=== PATIENT | female | born 1995 ===

== ENCOUNTER 2017-02-15 10:00 | Emergency (ER) | payer MEDICAID ==
[2017-02-15 10:05] VITALS: BP 130/68; TEMP 98
[2017-02-15 10:06] VITALS: BMI 24.5
[2017-02-15 10:15] VITALS: PULSE 68; RESP 20; O2SAT 98
--- NOTE | 2017-02-15 10:45 | ED PDOC ---
HPI: General Adult Time Seen by Provider: 02/15/17 10:14 Chief Complaint (Nursing): Abnormal Skin Integrity Chief Complaint (Provider): Possible allergic reaction History Per: Patient History/Exam Limitations: no limitations Onset/Duration Of Symptoms: Days (3) Have you had recent travel within the past 21 days to any of the following countries: [place], [place], [place] or [place]?: No Current Symptoms Are (Timing): Still Present Severity: Moderate Additional History Per: Patient Additional Complaint(s): The pt is a 21yo female, presents to the ED for evaluation of a possible allergic reaction. Pt reports 3 days ago she took a Plan B pill and noticed a rash last night. States this morning she woke up with a rash with white heads on both her cheeks and itching to her neck. She states this is her 3rd instance of plan B usage and denies any new laundry detergent, soaps, foods. She additionally denies any shortness of breath, throat swelling, throat itching, cough or fever. Pt offers no additional medical complaints. Past Medical History Reviewed: Historical Data, Nursing Documentation, Vital Signs Vital Signs: Last Vital Signs Temp 98 F 02/15/17 10:11 Pulse 68 02/15/17 10:11 Resp 20 02/15/17 10:11 BP 130/68 02/15/17 10:11 Pulse Ox 98 02/15/17 10:56 - Medical History PMH: No Chronic Diseases - Surgical History Surgical History: No Surg Hx - Family History Family History: States: No Known Family Hx - Home Medications Home Medications: Ambulatory Orders Medication Instructions Recorded DiphenhydrAMINE [Benadryl] 50 mg PO Q6H PRN #20 cap 02/15/17 - Allergies Allergies/Adverse Reactions: Allergies Allergy/AdvReac Type Severity Reaction Status Date / Time No Known Allergies Allergy Verified 02/15/17 10:20 Review of Systems ROS Statement: Except As Marked, All Systems Reviewed And Found Negative ENT: Negative for: Throat Pain, Throat Swelling Cardiovascular: Negative for: Chest Pain Respiratory: Negative for: Cough, Shortness of Breath Skin: Positive for: Rash (b/l cheeks and neck) Physical Exam - Reviewed Nursing Documentation Reviewed: Yes Vital Signs Reviewed: Yes - Physical Exam Appears: Positive for: Well, Non-toxic, No Acute Distress Head Exam: Positive for: ATRAUMATIC, NORMAL INSPECTION, NORMOCEPHALIC Skin: Positive for: Warm, Dry, Rash (minute white pustules noted on b/l cheeks) Eye Exam: Positive for: Normal appearance ENT: Positive for: Normal ENT Inspection. Negative for: Pharyngeal Erythema, Other (throat swelling ) Cardiovascular/Chest: Positive for: Regular Rate, Rhythm Respiratory: Positive for: Normal Breath Sounds. Negative for: Respiratory Distress Neurologic/Psych: Positive for: Alert, Oriented - ECG O2 Sat by Pulse Oximetry: 98 (RA) Pulse Ox Interpretation: Normal Medical Decision Making Medical Decision Making: Time: 1024 Impression: Allergic reaction, reaction to medication Plan: -- Benadryl 50 mg PO -- Reassess Scribe Attestation: Documented by Sada Chicas acting as a scribe for Cherry Pabon MD. Provider Attestation: All medical record entries made by the Scribe were at my direction and personally dictated by me. I have reviewed the chart and agree that the record accurately reflects my personal performance of the history, physical exam, medical decision making, and the department course for this patient. I have also personally directed, reviewed, and agree with the discharge instructions and disposition. Disposition - Clinical Impression Clinical Impression: Medication side effect - Disposition Referrals: Savanna Oquendo MD [Family Provider] - Disposition: Routine/Home Disposition Time: 11:59 Condition: STABLE Prescriptions: DiphenhydrAMINE [Benadryl] 50 mg PO Q6H PRN #20 cap PRN Reason: Itching / Pruritus Instructions: Levonorgestrel (By mouth)
== END 2017-02-15 12:41 | disposition home or self-care (01) ==
LOC: H.ER 10:00
DX: T78.40XA Allergy, unspecified, initial encounter (principal)